=== PATIENT | male | born 1985 | race Caucasian/White ===

== ENCOUNTER 2022-09-26 22:01 | Emergency (ER) | payer SELFPAY ==
[~2022-09-26] VITALS: Ht 177.8 cm; Wt 86.4 kg
[2022-09-26 22:06] VITALS: BP 146/68
== END 2022-09-26 23:50 | disposition left against medical advice (07) ==
LOC: EMS 22:02
DX: Z53.21 Procedure and treatment not carried out due to patient leaving prior to being seen by health care provider (principal)
CPT/HCPCS: 99281; Z7502